=== PATIENT | male | born 1990 | race Caucasian/White ===

== ENCOUNTER 2017-10-11 20:44 | Emergency (ER) | payer OTHER ==
--- NOTE | 2017-10-11 21:29 | XRAY Report ---
Procedure Date: 10/11/2017 Accession Number: [id number] / [id number] Procedure: XR - Hand 3 View LT CPT Code: FULL RESULT: EXAM: LEFT HAND RADIOGRAPHY EXAM DATE: 10/11/2017 09:12 PM. CLINICAL HISTORY: Left thumb injury with pain in hand. COMPARISON: None. TECHNIQUE: 3 views. FINDINGS: Bones: Normal. No fractures or bone lesions. Joints: Normal. No subluxations. Soft Tissues: Unremarkable. IMPRESSION: Normal hand radiography. [facility]
--- NOTE | 2017-10-11 21:43 | ED Physician Documentation ---
PD HPI UPPER EXT INJURY - Stated complaint Stated Complaint: LT THUMB INJ - Chief complaint Chief Complaint: Ext Problem - History obtained from History obtained from: Patient - History of Present Illness Location: Left, Finger (thumb base) Type of injury: Blunt / blow (caught fast baseball with gloved hand during game and says it struck wrong spot at base of thumb.) Timing - onset: Today Timing - details: Abrupt onset, Still present Review of Systems Skin: denies: Abrasion (s), Laceration (s) Neurologic: denies: Focal weakness (not weak but painful for thumb ROM and opposition/flexion), Numbness PD PAST MEDICAL HISTORY - Past Medical History Past Medical History: No - Past Surgical History Past Surgical History: No - Present Medications Home Medications: Ambulatory Orders Medication Instructions Recorded Confirmed No Known Home Medications [No 10/11/17 10/11/17 Known Home Medications] - Allergies Allergies/Adverse Reactions: Allergies Allergy/AdvReac Type Severity Reaction Status Date / Time No Known Drug Allergies Allergy Verified 10/11/17 20:58 - Social History Does the pt smoke?: No Smoking Status: Never smoker Does the pt drink ETOH?: Yes Does the pt have substance abuse?: No - Immunizations Immunizations are current?: Yes - POLST Patient has POLST: No PD ED PE NORMAL - Vitals Vital signs reviewed: Yes - General General: Alert and oriented X 3, No acute distress, Well developed/nourished - Derm Derm: Normal color, Warm and dry - Extremities Extremities: Other (left thumb with tenderness at base, mostly ulnar side. No gross laxity on stress testing, but hurts with exam so limited. Normal color and cap refill in fingertip. ) - Neuro Neuro: No motor deficit (he is able to move thumb in all ROM but hurts and is stiff. ), No sensory deficit Results - Vitals Vitals: Oxygen O2 Source Room air - Rads (name of study) thumb xray Radiology: Prelim report reviewed, EMP read contemporaneously (left thumb without fracture nor dislocation. ) PD MEDICAL DECISION MAKING - ED course Complexity details: reviewed results, considered differential (consider UCL injury, given mechanism and area of pain. ), d/w patient - Sepsis Event Vital Signs: Oxygen O2 Source Room air Departure - Departure Disposition: 01 Home, Self Care Clinical Impression: Sprain of ulnar collateral ligament of metacarpophalangeal (MCP) joint of left thumb Qualifiers: Encounter type: initial encounter Qualified Code(s): S63.642A - Sprain of metacarpophalangeal joint of left thumb, initial encounter Condition: Stable Record reviewed to determine appropriate education?: Yes Instructions: Skier's Thumb, ED Sprain Finger Follow-Up: HEMAL ALVAREZ DO [Primary Care Provider] - Comments: Ibuprofen or naproxen 2-3 times a day for inflammation. Use the thumb splint for the next week. It is okay to have it off briefly at times for cleaning and such. However support the base of the thumb the majority of the time. Follow- up with your primary care in about a week for concern of a injury of the ligaments at the base of the thumb. Discharge Date/Time: 10/11/17 22:23
[2017-10-11] MEDS ORDERED: IBUPROFEN 600 MG TABLET PO STA (22:16)
[2017-10-11 22:24] VITALS: BP 122/80
== END 2017-10-11 22:23 | disposition home or self-care (01) ==
LOC: ED 20:44
DX: S63.642A Sprain of metacarpophalangeal joint of left thumb, initial encounter (principal); W21.03XA Struck by baseball, initial encounter; Y93.64 Activity, baseball
CPT/HCPCS: 73130; 99282; 99283; A9270